=== PATIENT | male | born 1995 | race Caucasian/White ===

== ENCOUNTER 2017-07-10 18:04 | Emergency (ER) | payer OTHER ==
[~2017-07-10] VITALS: Ht 182.9 cm; Wt 74.8 kg
[~2017-07-10 18:04] MED LIST: PREDNICOT10 MG PO; SINGULAIR10 MG PO; ZITHROMAX Z PA250 MG PO; ZITHROMAX200 MG/51 PO
[2017-07-10] MEDS ORDERED: PERCOCET 5/3251 EACH PO (18:33)
[2017-07-10] MEDS ORDERED: ZOFRAN4 MG PO (18:33)
[2017-07-10] MEDS ORDERED: BACLOFEN 10MG T10 MG PO (18:34)
[2017-07-10 18:56] LABS: LYMPH # 1.5 K/mm3 (0.7-4.5); LYMPH % 16.7 % (10-50)
[2017-07-10 18:59] LABS: HEMOGLOBIN 11.8 g/dL (14.1-18.0)
--- NOTE | 2017-07-10 19:12 | Emergency Room Report ---
History of Present Illness Time Seen by [id number] Presenting Problem in Triage Pt arrived:Wheelchair Presenting Problem:PT PRESENTS TONIGHT WITH WORSENING BACK PAIN. HAS HAD TWO SURGERIES PERFORMED BY DR SMART AT [facility] IN [place], [place]; BOTH ON HIS BACK TO CORRECT SCOLIOSIS-DURING THE PAST MONTH. STATES HE SPENT THE NIGHT AT A FRIENDS LAST NIGHT, HAD NO NEW TRAUMA, HAD NO CHANGES IN NORMAL HABITS AND BEGAN EXPERIENCING INTENSE BACK PAIN. PT FURTHER STATES HE HAS PAIN IN HIS RIGHT HIP THAT STARTED LAST NIGHT WELL. PT IS ON BACLOFEN, OXY- CODONE, AND ZOFRAN. HAS A FEW OXYCODONE LEFT. 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 N Clinical Suspician of Infection? N Mental Status: 1 - Regular (Normal Baseline) Sepsis Risk:Low Sepsis Risk Have you (or family members/close friends) recently traveled outside the [place]? N If Yes, where/when: Have you had exposure to infectious disease within the past month? TB? Other? Specify: Patient with hx of scoliosis, underwent two procedures per Dr. Smart in [place], the first of which was on 06/23/17 with removal of a portion of rib, and 06/26/17 with correction of scoliosis by dario placement. He is taking oxycodone and last dose was three hours ago, but he is experiencing intense right hip pain, worse with movement today. No loss of bowel or bladder function. No hematuria. He has some right flank pain as well as midline pain. No new neurological symptoms today. Pain is described as intense, and he is pacing the floor in the ED. ALLERGIES Coded Allergies: No Known Allergies (07/10/17) Home Medications Reported Medications Oxycodone 5MG/[id number] (Oxycodone-Acetaminophen 5-325) 1 TAB PO Q4HP PRN BACK PAIN ONDANSETRON HCL (Zofran 4MG Tab) 4 MG PO Q6HP PRN NAUSEA AND VOMITING BACLOFEN (Baclofen) 10 MG PO TID (Keshia Cobian MD) History Medical History General Angina: No RI: No Hypertension? No Hyperlipidemia? No CHF? No COPD? No Asthma? Yes CVA? No Seizures? No Diabetes? No GB Disease: No MRSA? No TB? No Cancer? No Immunization Hx Ped.Immunizations UTD Yes DT/Tetanus 5-10 YRS Surgical Hx Previous Surgery?Y BACK SURGERIES X 2 Social History Smoking Hx Smoker: Never Smoker Tobacco: No Type N/A Are you/the child exposed to second-hand smoke: No Alcohol Alcohol: No (Keshia Cobian MD) Review of Systems All Other Systems Reviewed and Negative Musculoskeletal back pain (Keshia Cobian MD) Physical Exam Vital Signs Vital Signs Date Time Temp Pulse Resp B/P Pulse O2 O2 Flow FiO2 Ox Delivery Rate 07/10 2023 98.4 79 20 128/62 98 07/10 1927 98.1 88 20 113/69 98 07/10 1848 18 07/10 1848 18 07/10 1822 97.8 89 18 139/95 98 General Appearance normal appearance, WD/WN, no apparent distress, mild distress (pacing), thin Eye Exam - bilateral eye normal exam, bilateral eye PERRL, bilateral eye EOMI Neck normal inspection, non-tender, supple, full range of motion Respiratory Status Yes: trachea midline, chest symmetrical, non tender chest. No: respiratory distress, tender on palpation, use of accessory muscles, pain on inspiration, pain on expiration, productive cough, non productive cough. Lung Sounds bilateral: normal breath sounds, lungs clear. Cardiovascular normal exam, regular rate/rhythm, no peripheral edema, no gallop, no JVD, no murmur, no rub, normal peripheral pulses Peripheral Pulses Pulses normal Yes Gastrointestinal normal bowel sounds, normal exam, non tender, soft, no organomegaly, no pulsatile mass, no guarding, no rebound (scaphoid) Back midline scar with no drainage, warmth, or redness; has mild pain with palpation over scar but no chan bulging or drainage, and no chan vertebral tenderness; no muscle spasm or CVAT. Intense right hip pain with palpation of posterior pelvis with no swelling or redness locally. Extremities right hip pain with ROM and palpation; no shortening or rotation noted. Strength 5 Upper Ext (L), 5 Upper Ext (R), 5 Lower Ext (L), 5 Lower Ext (R) Neurologic alert, normal exam, no motor/sensory deficits, oriented x 3 Reflexes DTR 3+ ankle (R), 3+ ankle (L) Skin intact (scar to back see above), normal color (Mango MEYER, Keshia Villar) Medical Decision Making LABS/Meds/Orders Pt receiving controlled substance in ED? Yes Tomas was queried for this patient? Yes Reference #: [id number] Risks/benefits of using a controlled substance for treatment were discussed w/pt by me Results/Orders Laboratory Tests 07/10/171829: ESR 45 H 07/10/171829: Sodium 139, Potassium 3.8, Chloride 99, Carbon Dioxide 28, BUN 14, Creatinine 0.9, Estimated Creat Clear 139, Estimated GFR (MDRD) 108, Glucose 113 H, Calcium 9.6, Total Bilirubin 0.3, AST 16, ALT 26, Alkaline Phosphatase 129 H, Total Protein 7.8, Albumin 3.8, Globulin 4.0 H, Albumin/Globulin Ratio 1.0 L, WBC 8.7, RBC 3.93 L, Hgb 11.8 L, Hct 34.4 L, MCV 87.6, RDW 13.0, Plt Count 512 H, MPV 7.8, Gran % 75.0, Gran # 6.5, Lymphocytes % 16.7, Monocytes % 6.4, Eosinophils % 1.4, Basophils % 0.5, Lymphocytes # 1.5, Monocytes # 0.6, Eosinophils # 0.1, Basophils # 0.1, PUBS MCHC 34.2, MCH 30.0 Current Medication Orders Sig/Ivis Start time Last Medication Dose Route Stop Time Status Admin Sodium Chloride 1,000 ML .Q1H1M 07/10 2100 AC 07/10 IV 07/10 Sodium Chloride 10 ML PRN PRN 07/10 2100 AC IV 07/11 2052 Sodium Chloride 1,000 ML .STK-MED ONE 07/10 2054 DC IV Ketorolac 30 MG ONCE ONE 07/10 1845 DC 07/10 Tromethamine IV 07/10 Morphine Sulfate 4 MG ONCE ONE 07/10 1845 DC 07/10 IV 07/10 Ondansetron HCl 4 MG ONCE ONE 07/10 1845 DC 07/10 IV 07/10 Sodium Chloride 10 ML PRN PRN 07/10 1845 AC IV 07/11 1844 Ondansetron HCl 0 .STK-MED ONE 07/10 1838 DC .ROUTE Ketorolac 0 .STK-MED ONE 07/10 1837 DC Tromethamine .ROUTE Morphine Sulfate 0 .STK-MED ONE 07/10 1837 DC .ROUTE Orders Procedure Date/time Status DIET-NOTHING BY MOUTH 07/11 B Active SED RATE 07/10 2015 Complete C-REACTIVE PROTEIN 07/[address] THORACIC SPINE W/O CONTRAST 07/[address] LUMBAR SPINE W/O CONTRAST 07/[address] ABD & PELVIS W/O CONTRAST 07/10 1844 Active IV SALINE LOCK 07/10 1844 Active URINALYSIS/COMPLETE 07/10 1844 Active CBC WITH AUTO DIFF 07/10 1844 Complete CHEM 12 PROFILE 07/[address] SCAN REQ 07/[address] ABD/PELVIS REQ 07/10 1843 Complete Progress ED Progress Notes Date 07/10/17 Time 1939 Comment Pain completely controlled, resting comfortably. (Keshia Cobian MD) Departure Departure Time of Disposition 1953 Disposition Still a Patient Clinical Impression Primary Impression: Acute right flank pain Secondary Impressions: Post-operative pain Prescriptions Current Visit Scripts OXYCODONE HCL/ACETAMINOPHEN (Percocet 10-325 MG Tablet) 1 TAB PO Q4HP PRN pain #20 TAB ED Critical Care Critical Care No (Keshia Cobian MD) Departure Condition STABLE Referrals Juan Alberto Adams MD discussed with dr adams Patient Instructions DI for Thoracic Back Pain Additional Instructions use meds and call dr adams in am (Sharon Agudelo MD) at 2000 at 2118
[2017-07-10] MEDS ORDERED: PERCOCET1 TA1 PO (19:59)
[2017-07-10 21:22] VITALS: BP 121/75
--- NOTE | 2017-07-11 05:06 | RADIOLOGY REPORT PS360 ---
CT ABD PELVIS W/O CONTRAST CLINICAL INDICATION: Abdominal pain, left flank pain, left flank and hip pain, recent surgery RT FLANK/HIP PAIN, SCOLIOSIS REPAIR ORDERING PHYSICIAN: Sharon Agudelo MD PATIENT AGE: 22 years COMPARISON: None TECHNIQUE: Axial images obtained with sagittal and coronal reformats. PROCEDURE: Oral Contrast: None IV Contrast: None . FINDINGS: There is extensive streak artifact from spinal surgery with interpedicular screws and stabilizing rods. This could obscure or pathology in the abdomen . Lung bases are clear. The liver, gallbladder, spleen, pancreas, and adrenal glands have an unremarkable appearance without contrast considering overlying artifact. There is a moderate amount retained colonic feces. No evidence of small bowel obstruction. No renal or ureteral calculi versus evident. There are postsurgical changes of the lumbar spine. Please see the T spine and L spine report for further detail. Postsurgical fluid collection present with some gas at the T12-L1 level. IMPRESSION: 1. No acute intra-abdominal or pelvic pathology. 2. Constipation. 3. Scoliosis with postsurgical changes of the lumbar spine. Small amount postsurgical gas is present T11-T12 level. Please see lumbar and thoracic CT spine report for further description
--- NOTE | 2017-07-11 05:17 | RADIOLOGY REPORT PS360 ---
CT THORACIC SPINE W/O CONTRAST INDICATION: Pain in the thoracic spine, scoliosis repair, back pain RT FLANK/HIP PAIN, SCOLIOSIS REPAIR ORDERING PHYSICIAN: Sharon Agudelo MD PATIENT AGE: 22 years COMPARISON: None TECHNIQUE: Axial images are obtained without contrast. Sagittal and coronal reformatted images are reviewed as well. FINDINGS: There is thoracic scoliosis convex to the right measuring 24 degrees. Status post posterior fixation with interpedicular screws stabilizing dario T10-L4. Hyperdense graft material noted in the posterior paravertebral soft tissues No acute fracture or dislocation. Fluid collection with some air is seen posterior to the T12 level in the dorsal paravertebral soft tissues. Abscess is a consideration. Residual postsurgical gas also a consideration. Correlation with clinical parameters needed. Repeat exam with contrast or MRI may provide further evaluation.. IMPRESSION: Interval posterior fixation of scoliosis with interpedicular screws and stabilizing rods from T10 to L4 with a fluid collection with some air in the dorsal paravertebral soft tissues at the T12 region. Abscess is a consideration. Residual postsurgical gas with seroma also considered. Clinical correlation is required
--- NOTE | 2017-07-11 05:24 | RADIOLOGY REPORT PS360 ---
CT LUMBAR SPINE W/O CONTRAST CLINICAL INDICATION: Low back pain following recent surgery for scoliosis RT FLANK/HIP PAIN, SCOLIOSIS REPAIR ORDERING PHYSICIAN: Sharon Agudelo MD PATIENT AGE: 22 years COMPARISON: None TECHNIQUE:Axial, sagittal, and coronal images are generated and reviewed without contrast FINDINGS: Lumbar scoliosis convex left measuring 35 degrees. This previously measuring 59 degrees. There is been interval posterior dynamic stabilization. No acute fracture is evident. Interpedicular screws are present and T10 L4 with stabilizing dario. Hyperdense material is noted in the posterior paraspinal region and in the interval vertebral disc spaces and may be related to graft material versus disc calcification. This was present on the previous study. Hyperdense material is present in the dorsal paravertebral soft tissues and may represent bone graft or other fusion material extending from T10 to L3. Small collection of air is seen in the upper portion of the posterior paravertebral soft tissue density 12 level and may be seen with abscess or residual postsurgical air. IMPRESSION: Postsurgical changes from prior fixation with a scoliosis from L4 with improvement in the scoliosis angle Small collection of air within the upper portion of the posterior paravertebral soft tissues which could represent postsurgical seroma and gas versus abscess. Correlation with clinical findings needed.
== END 2017-07-10 21:39 | disposition still patient (30) ==
LOC: ER 18:04
PROVIDERS: Emergency Medicine
DX: G89.18 Other acute postprocedural pain (principal); M54.6 Pain in thoracic spine; Z79.899 Other long term (current) drug therapy
CPT/HCPCS: J2405